=== PATIENT | female | born 1970 | race Two or more races ===

== ENCOUNTER 2020-09-20 19:42 | Emergency (ER) | payer MEDICAID, OTHER, SELFPAY ==
[~2020-09-20] VITALS: Ht 165.1 cm; Wt 93.3 kg
[2020-09-20 20:44] LABS: BASOPHILS % (AUTO) 0 % (0-1); EOSINOPHILS % (AUTO) 3 % (1-7); LYMPHOCYTES % (AUTO) 38 % (22-44); MEAN CORPUSCULAR HEMOGLOBIN 28.7 pg (27.0-34.8); MEAN CORPUSCULAR HGB CONC 34.3 g/dL (32.4-35.8); MONOCYTES % (AUTO) 6 % (2-9); NEUTROPHILS % (AUTO) 53 % (42-75); PLATELET COUNT 263 x10^3/uL (130-400); RED BLOOD COUNT 4.95 x10^6/uL (3.82-5.3); RED CELL DISTRIBUTION WIDTH 13.4 % (9.6-15.2)
[2020-09-20 20:56] LABS: ALBUMIN 3.8 g/dL (3.4-5.0); ANION GAP 4 mmol/L (5-15); CALCIUM 8.8 mg/dL (8.5-10.1); CHLORIDE 109 mmol/L (98-107); CREATININE 0.64 mg/dL (0.55-1.02)
[2020-09-20 20:59] LABS: TROPONIN I < 0.015 ng/mL (0.000-0.045)
[2020-09-20 21:54] VITALS: BP 126/70
== END 2020-09-20 22:12 | disposition home or self-care (01) ==
LOC: ED 22:07
DX: M25.512 Pain in left shoulder (principal); R07.89 Other chest pain; R00.2 Palpitations
CPT/HCPCS: 36415; 71046; 80048; 82040; 84484; 85025; 93005; 99285